=== PATIENT | male | born 1995 | race Caucasian/White ===

== ENCOUNTER 2018-02-28 20:33 | Emergency (ER) | payer OTHER ==
[~2018-02-28] VITALS: Ht 180.3 cm; Wt 86.2 kg
[2018-02-28 20:53] VITALS: Ht 180.3 cm; Wt 86.2 kg
[2018-03-01 01:32] VITALS: BP 145/73
== END 2018-03-01 01:32 | disposition home or self-care (01) ==
LOC: ED 20:33
DX: M25.552 Pain in left hip (principal); W17.89XA Other fall from one level to another, initial encounter; Y93.52 Activity, horseback riding; Y92.89 Other specified places as the place of occurrence of the external cause; Y99.8 Other external cause status
CPT/HCPCS: J1885; Q0092